=== PATIENT | female | born 2000 | race Caucasian/White ===

== ENCOUNTER 2023-03-02 18:34 | Emergency (ER) | payer BC, SELFPAY ==
[2023-03-02 19:32] VITALS: BP 125/85; PULSE 77; RESP 18; TEMP 36.3; O2SAT 99
--- NOTE | 2023-03-02 20:47 | ED.GENADULT ---
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 She just had placed 2 days ago and is having significant pain at the site on her soft/hard palate. She has had no fevers no chills no neurologic symptoms no symptoms of infection. No drainage no discharge no lymphadenopathy no bleeding. She states that the pain is not adequately treated with ibuprofen and she has been unable to get hold of her oral surgeon. Related Data Allergies Allergy/AdvReac Type Severity Reaction Status Date / Time No Known Drug Allergies Allergy Verified 03/02/23 19:32 Review of Systems Status of ROS: Reports: 6 or more systems reviewed and unremarkable except as noted in History and below Exam Narrative: Exam Narrative: EXAM GENERAL: Patient appears comfortable and well. EYES: No scleral icterus. ENT: Tympanic membranes and oropharynx normal. THYROID: no thyroid nodules or thyromegaly. LYMPH: No supraclavicular or cervical lymphadenopathy. SKIN: Visible skin seen during exam normal or with benign process only. EXT: No dependent lower extremity pedal edema. HEART: Regular rate and rhythm with no murmurs, rubs, or gallops. LUNGS: Clear to auscultation bilaterally with no crackles or wheezes. ABD: Soft, non tender, non distended. PSYCH: Good eye contact, speech is not pressured. Oral exam shows palate taxation economist placed no signs of infection. No significant swelling or induration. Const: Vital Signs, click to edit/add: Vital Signs - 24 hr 03/02/23 19:32 Temperature 97.3 F L Pulse Rate [Left P ulse Oximeter] 77 Respiratory Rate 18 Blood Pressure [Ri ght Upper Arm] 125/85 Pulse Oximetry 99 Oxygen Delivery Me thod Room Air Course Course ED Course: Patient seen and examined. Vital Signs Vital signs: Initial Vital Signs Temperature 97.3 F L 03/02/23 19:32 Temperature Source Temporal Artery Scan 03/02/23 19:32 Pulse Rate 77 03/02/23 19:32 Pulse Rhythm Regular 03/02/23 19:32 Respiratory Rate 18 03/02/23 19:32 Blood Pressure 125/85 03/02/23 19:32 Blood Pressure Mean 98 03/02/23 19:32 Blood Pressure Position Sitting 03/02/23 19:32 Pulse Oximetry 99 03/02/23 19:32 Oxygen Delivery Method Room Air 03/02/23 19:32 Vital Signs Temperature 97.3 F L 03/02/23 19:32 Pulse Rate 77 03/02/23 19:32 Respiratory Rate 18 03/02/23 19:32 Blood Pressure 125/85 03/02/23 19:32 Pulse Oximetry 99 03/02/23 19:32 Oxygen Delivery Method Room Air 03/02/23 19:32 Temperature 97.3 F L 03/02/23 19:32 Pulse Rate 77 03/02/23 19:32 Respiratory Rate 18 03/02/23 19:32 Blood Pressure 125/85 03/02/23 19:32 Pulse Oximetry 99 03/02/23 19:32 Oxygen Delivery Method Room Air 03/02/23 19:32 Medical Decision Making MDM Narrative Medical decision making narrative: Patient is a 22-year-old woman who presents after having a oral appliance placed by his oral surgeon/school admissions representative. He is having discomfort and needs to continue to adjust the device. I do not see any signs of infection. This time will treated with [place] the short term with outpatient follow-up. I did give her my contact information will follow-up with her in the office on a p.r.n. basis Differential Diagnosis Differential Diagnosis: Dental infection cavities sinusitis cellulitis Discharge Plan Discharge Clinical Impression: Acute oral pain Patient Disposition: Home, Self-Care Condition: Stable Additional Instructions: Ibuprofen Ice [place] as directed Follow-up with your surgeon Follow-up with Dr. Rouse on a p.r.n. basis Activity Level: No Restrictions Discharge Diet: Regular Stand Alone Forms: Physician Practice [employer] Info Instructions
== END 2023-03-02 21:00 | disposition home or self-care (01) ==
LOC: ED 20:55
PROVIDERS: Emergency Provider Internal Medicine
DX: K08.89 Other specified disorders of teeth and supporting structures (principal); T85.698A Other mechanical complication of other specified internal prosthetic devices, implants and grafts, initial encounter
CPT/HCPCS: 99283

== ENCOUNTER 2023-03-04 18:07 | Emergency (ER) | payer BC, SELFPAY ==
[2023-03-04 18:26] VITALS: BP 121/80; PULSE 86; RESP 16; TEMP 36.4; O2SAT 98
--- NOTE | 2023-03-04 20:06 | ED_ITS ---
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 She has been having pain ever since. She was seen here on Sunday and given Burton because ibuprofen was not helping. She is back today because she is concerned that it might be getting infected. She is also almost out of Vicodin. She says there is a spot near 1 of the brackets that looked red with a little white edge. She has not contacted her oral surgery clinic. Related Data Allergies Allergy/AdvReac Type Severity Reaction Status Date / Time No Known Drug Allergies Allergy Verified 03/02/23 19:32 PFSH PFS Social History Smoking Status: Never smoker Do you use any of these nicotine containing products: None Second hand tobacco smoke exposure: No How often do you have a drink containing alcohol: never How often do you have six or more drinks on one occasion: Never AUDIT-C Alcohol total score: 0 Non-prescribed substance use: denies use service: No Exam Narrative: Exam Narrative: Vital signs reviewed, unremarkable. Afebrile. ENT: Oral hardware looks intact. I do not see any erythema or purulence, no swelling, really looks entirely normal to me. Neck: No adenopathy. Const: Vital Signs, click to edit/add: Vital Signs - 24 hr 03/04/23 18:26 Temperature 97.5 F L Pulse Rate [Left P ulse Oximeter] 86 Respiratory Rate 16 Blood Pressure [Ri ght Upper Arm] 121/80 Pulse Oximetry 98 Oxygen Delivery Me thod Room Air Documenting provider has reviewed patient's vital signs: yes Course Course ED Course: Discussed with her that from my standpoint I do not see anything that looks significantly infected, but I am happy to put her on an antibiotic for today and she can review with her oral surgeon to see if they would like her to continue it or discontinue tomorrow. She requested additional Vicodin. I have given her 4 tablets, discussed that this should be the last narcotic that she requires for this problem, would stick with ibuprofen going forward. Call her clinic tomorrow to discuss further management. Vital Signs Vital signs: Initial Vital Signs Temperature 97.5 F L 03/04/23 18:26 Temperature Source Temporal Artery Scan 03/04/23 18:26 Pulse Rate 86 03/04/23 18:26 Pulse Rhythm Regular 03/04/23 18:26 Respiratory Rate 16 03/04/23 18:26 Blood Pressure 121/80 03/04/23 18:26 Blood Pressure Mean 93 03/04/23 18:26 Blood Pressure Position Sitting 03/04/23 18:26 Pulse Oximetry 98 03/04/23 18:26 Oxygen Delivery Method Room Air 03/04/23 18:26 Vital Signs Temperature 97.5 F L 03/04/23 18:26 Pulse Rate 86 03/04/23 18:26 Respiratory Rate 16 03/04/23 18:26 Blood Pressure 121/80 03/04/23 18:26 Pulse Oximetry 98 03/04/23 18:26 Oxygen Delivery Method Room Air 03/04/23 18:26 Temperature 97.5 F L 03/04/23 18:26 Pulse Rate 86 03/04/23 18:26 Respiratory Rate 16 03/04/23 18:26 Blood Pressure 121/80 03/04/23 18:26 Pulse Oximetry 98 03/04/23 18:26 Oxygen Delivery Method Room Air 03/04/23 18:26 Discharge Plan Discharge Clinical Impression: Acute oral pain Patient Disposition: Home, Self-Care Condition: Stable Additional Instructions: Antibiotic as prescribed. Ibuprofen 400 mg 3 times daily. Burton if needed for uncontrolled pain. Call your oral surgery clinic tomorrow morning for further instructions. Follow Up/Referrals: Provider,Not a Local [Primary Care Provider] - Stand Alone Forms: MyHealth Info Instructions
== END 2023-03-04 19:41 | disposition home or self-care (01) ==
LOC: ED 19:22
PROVIDERS: Emergency Provider Emergency Medicine
DX: K08.89 Other specified disorders of teeth and supporting structures (principal)
CPT/HCPCS: 99282; 99283

== ENCOUNTER 2023-09-05 03:34 | Emergency (ER) | payer BC, SELFPAY ==
[2023-09-05 03:37] VITALS: BP 106/76; PULSE 56; RESP 16; TEMP 36.7; O2SAT 99; BMI 21.6
--- OUTSIDE RECORDS SUMMARY | 2023-09-05 03:43 | XMS_ITS | Referral Summary ---
Author Name Unknown Organization [facility] Address [address] [place] [address] Phone Care Team Providers Care Needle Grinder Name Role Phone Ramya Howell M.D. Primary Care Provider [phone]- [phone] Source Comments [facility], [place], [place] is fully implemented on [employer]. [facility] Allergies Active Allergy Reactions Criticality Noted Date Comments Gold Swelling (Throat) High 05/01/2023 Indium (111in) Oxyquinoline Swelling (Not Throat) Low 05/01/2023 Found during allergy test Medications * Be aware that medications may not be up to date as of this document. Always verify current medications with patient. Medication Sig Dispensed Refills Start Date End Date Status Julia 3-0.02 MG Tab TAKE ONE TABLET BY MOUTH DAILY 84 tab 0 06/27/2021 Active FLUoxetine (PROZAC) 20 mg Capsule Take 1 capsule (20 mg) by mouth daily 0 04/13/2023 Active linaCLOtide (Linzess) 290 MCG Capsule Take 1 capsule (290 mcg) by mouth daily Take 30 min before dinner 30 capsule 6 05/04/2023 Active Active Problems Problem Noted Date Diagnosed Date Generalized abdominal pain 04/16/2023 Nausea 04/16/2023 Dyspareunia in female 04/07/2020 Overview: Patient with history of dyspareunia with insertion during two prior attempts at intercourse with her partner prior to first visit At first visit, had area of pain on exam 2-3 cm proximal to introitus Planned for her to continue PFPT, use dilators daily, and RTC for follow up Patient has not had continued PFPT and was unable to do dilator exercises at school as she shares a room Has not attempted intercourse again with her partner although they are both in town for the holidays Patient wondering if she needs surgery or what plan will be for her. Cannot do exercises while in school due to lack of privacy in room Recommend PFPT and daily dilator use beginning over summer Plan for clinic visit prior to starting exercises if there are questions, otherwise RTC 1 mo after starting exercises Discussed that surgery is hopefully avoidable if conservative management shows improvement Healthcare maintenance 04/07/2020 Overview: STI: patient declines, has had two prior attempts but no successful episodes of intercourse Contraception: Daily OCPs (Apri) > transition to Louise for acne Sprain of cruciate ligament of knee 07/01/2014 Chronic osteomyelitis, multiple sites 04/30/2013 Immunizations Name Administration Dates Next Due Influenza Quad 0.5ML (Pres Free) 03/31/2020 Social History Tobacco Use Types Packs/Day Years Used Date Smoking Tobacco: Never Tobacco Cessation:Counseling Given: Not Answered Alcohol Use Standard Drinks/Week Comments Never 0 (1 standard drink = 0.6 oz pur e alcohol) Community Connections Answer Date Recor ded Caregiver PCP help Not on file 11/07/2018 Child PCP help Not on file 11/07/2018 Potential social isolation Not assesed 11/07 Appointment help Not on file 11/07/2018 Benefits help needed: Not on file 11/07/2018 Education concerns Not assesed 11/07/2018 Alcohol / Marijuana Use Answer Date Rec orded Alcohol/Marijuana- Caregiver: Not on file Alcohol last 12 mos: Not on file 08/01/2020 Marijuana- Patient Use: No 08/02/19 21 Tobacco Use Answer Date Recorded Tobacco: Caregiver Use No 3 Tobacco- Patient Use: No 04/16/2023 Depression risk Answer Date Recorded Caregiver Depression: Not on file 12/30/2019 Caregiver suicidal thoughts: Not on file Last PHQ-2 Not on file 12/30/2019 Last PHQ-9 Not on file 12/30/2019 Last EPDS Not on file 12/30/2019 Last EPDS self harm item: Not on file 2019 Transportation Answer Date Recorded Transportation Not on file 01/21/2023 [id number] 01/21/2023 Substance Use Answer Date Recorded Substances- Caregiver Use Not on file 2022 Substances- Patient Use: No 023 Sex and Gender Information Value Date Recorded Sex Assigned at Not on file Gender Identity Not on file Sexual Orientation Not on file Last Filed Vital Signs Vital Sign Reading Time Taken Comments Blood Pressure 96/69 05/01/2023 2:45 PM MST Pulse 60 05/01/2023 2:45 PM MST Temperature 36.1 ??C (97 ??F) 05/01/2023 2:45 PM MST Respiratory Rate 15 05/01/2023 2:45 PM MST Oxygen Saturation 98% 05/01/2023 2:45 PM MST Inhaled Oxygen Concentration - - Weight 61.3 kg (135 lb 2.3 oz) 05/01/2023 12:11 PM MST Height 166.7 cm (5' 5.63) 05/01/2023 12:11 PM [facility] Body Mass Index 22.06 05/01/2023 12:11 PM [facility] Plan of Treatment Not on file Advance Directives For more information, please contact: [phone] Documents on File Type Date Recorded Patient Reclamation Engineer Expl anation Advance Directive 05/01/2023 11:57 AM [facility] Care Teams Needle Grinder Relationship Specialty Start Date End Date Ramya Howell M.D. [address] [facility] [place] [address] PCP - General General Pediatrics 04/24/12
--- OUTSIDE RECORDS SUMMARY | 2023-09-05 03:43 | XMS_ITS | Encounter Summary ---
Author Name Unknown Organization [facility] Address [address] [place] [address] Phone Care Team Providers Care Tomahawk Weapon System Operator Name Role Phone Ramya Howell M.D. Primary Care Provider [phone]- [phone] Encounter Details Date Type Department Care Team (Late st Contact Info) Description 05/30/2012 Outside Lab Health Information Management [address] [place] [address] Social History Tobacco Use Types Packs/Day Years Used Date Smoking Tobacco: Never Assessed Sex and Gender Information Value Date Recorded Sex Assigned at Not on file Gender Identity Not on file Sexual Orientation Not on file documented as of this encounter Procedure Notes * YASMIN - 05/30/2012 5:47 PM MSTAssociated Order(s): OUTSIDE LAB SCANNED DOCUMENT documented in this encounter Plan of Treatment Not on file documented as of this encounter Procedures Procedure Name Priority Date/Time Associated Diagnosis Comments OUTSIDE LAB SCANNED DOCUMENT 05/30/2012 5:47 PM MST documented in this encounter Results * OUTSIDE LAB SCANNED DOCUMENT (05/30/2012 5:47 PM MST) Narrative Procedure Note YASMIN - 05/30/2012 5:47 PM MST [facility] OUTSIDE LABS documented in this encounter Visit Diagnoses Not on filedocumented in this encounter Care Teams Tomahawk Weapon System Operator Relationship Specialty Start Date End Date Ramya Howell M.D. [address] [facility] [place], [place] [id number] PCP - General General Pediatrics 04/24/12 documented as of this encounter
--- OUTSIDE RECORDS SUMMARY | 2023-09-05 03:43 | XMS_ITS | Clinical Summary ---
Author Name Unknown Organization [facility] Address [address] [address] Care Team Providers Care Office Workforce Planner Name Role Phone Katlyn Diaz MD Primary Care Provider [phone]- [phone] Willow Paul MD Unavailable [phone] Allergies No known active allergies Medications Medication Sig Dispensed Refills Start Date End Date Status drospirenone-et h estradiol (ISAAC) 3-0.02 mg per tablet Take 1 tablet by mouth daily for Contraception. 84 tablet 1 05/18/2023 Active FLUoxetine (PROZAC) 20 mg capsule Take 1 capsule by mouth daily for Anxiety with Depression, Obsessive-Compulsi ve Disorder. 90 capsule 06/08/2023 09/06/19 24 Active FLUoxetine (PROZAC) 10 mg capsule Take 1 capsule by mouth daily for 14 days, THEN 2 capsules daily for 16 days. for Obsessive-Compulsi ve Disorder. Take in addition to 20mg capsule.. 46 capsule 07/13/2023 08/10/19 24 Discontinued methylphenidate HCl (RITALIN) 5 mg tablet Take 1 tablet by mouth daily for Attention-Deficit Hyperactivity Disorder. 30 tablet 08/01/2023 08/31/19 24 methylphenidate HCl (RITALIN LA) 20 mg 24 hr capsule Take 1 capsule by mouth every morning for Attention-Deficit Hyperactivity Disorder. 30 capsule 08/01/2023 08/31/19 24 Active Problems Problem Noted Date Diagnosed Date Obsessive-compulsive disorder 06/15/2023 Last Assessment & Plan: Haydee has a history of obsessions and compulsions significantly impacting their life, at intake reported 2 hours spent on obsessions and 3 hours spent on compulsions per day. This has improved with therapy but is still distressing. YBOCS 12/25/22. Examples include skin picking, body checking for perceived uneven body shape, specific gait on specific saulo. If she resists, the resistance does not last long and she feels itchy and restless and is unable to think about other tasks. We cross-titrated from Celexa to Prozac as she did not tolerate Celexa at higher doses due to emotional numbing. She is tolerating Prozac 20mg without the emotional numbing and without physical side effects. We increased to 40mg but pt did not tolerate due to sedation. Will decrease back to Prozac 20mg where she had good effects without SE. May need to try an alternative SSRI if unable to fully target OCD symptoms with this low dose. Will have tried increasing at a slower rate, to Prozac 30mg and then 40mg, but Haydee has been unable to tolerate the 30mg as she is falling asleep in class. We discussed that OCD symptoms will likely not be treated appropriately with a lower dose of Prozac and discussed Luvox vs Clomiprimine. Haydee would like to trial 20mg again and increase frequency of therapy for a month to see how her symptoms evolve. If they continue, we will likely switch to Luvox. Plan: - Decrease Prozac from 30mg to 20mg - Continue Trazodone prn - Ok to take Melatonin Attention deficit hyperactivity disorder (ADHD) 10/11/2022 Last Assessment & Plan: Diagnosed in high school, has been taking Ritalin since age 17. No issues currently. Takes med holidays on school vacation/summer/ some weekends. Tried to rx Ritalin LA 20mg #90 in the past, but insurance did not cover. Originally placed 3rx panel with next due 10/01, but cancelled this due to switching pharmacies. Now will need next rx by 08/31, let pt and mother know to call/message one week before. Plan: - Ritalin 5mg daily - Ritalin LA 20mg daily ZBIGNIEW (generalized anxiety disorder) 10/11/2022 Last Assessment & Plan: Major depressive disorder 10/11/2022 Last Assessment & Plan: Panic attacks 10/11/2022 Last Assessment & Plan: Irritable bowel syndrome with constipation 12/06 Last Assessment & Plan: Advised her testing is not routinely performed as an evidence-based practice for diagnosis or management of IBS. She can continue to follow-up with her GI providers as needed. Surveillance for control, oral contracepti ves 12/06/2021 Immunizations Name Administration Dates Next Due DTaP 2006, 3,04/16/2002,02/11,2001 HPV, quadrivalent (GARDASIL) 10/07/2014 HPV9 (GARDASIL 9) 04/26/2015,12/21/2014 Hep A, ped/adol, 2 dose 04/26/2015,10/07/2014 Hib-Hep B 10/13/2002,02/11/2002,2001 IPV (Inactivated Poliovirus) 2006, 10/13/2002,02/11/2002,12/07 Influenza, injectable, quadr ivalent, preservative free (6 mo+) 03/31/2020,01/07/2020 MMR 01/27/2003 MMR/VARICELLA 2006 PFIZER, SARS-COV2 (COVID-19) VACCINE 04/18/2021, 09/04/2020,08/14/2020 Pneumococcal conjugate PCV 7 10/13/2002,07/11/19 03 Tdap 12/17/2012 influenza, live, intranasal, quadrivalent (2-49 yr) 02/17/2019 meningococcal B, recombinant 06/23/2019,06/01/19 19 meningococcal MCV4P 06/01/2018,12/17/2012 varicella (VARIVAX) 01/27/2003 Social History Tobacco Use Types Packs/Day Years Used Date Smoking Tobacco: Never Smokeless Tobacco: Never Alcohol Use Standard Drinks/Week Comments Yes 0 (1 standard drink = 0.6 oz pur e alcohol) occassionally PHQ-2 Answer Date Recorded PHQ-2 SCORE 4 08/10/2023 PHQ-9 Answer Date Recorded PHQ-9 Total Score 15 08/10/2023 Sex and Gender Information Value Date Recorded Sex Assigned at Female 05/05/2021 3:11 PM MST Gender Identity Female 05/05/2021 3:11 PM MST Sexual Orientation Not on file Last Filed Vital Signs Vital Sign Reading Time Taken Comments Blood Pressure 90/60 10/16/2022 4:21 PM MDT Pulse 92 10/16/2022 4:21 PM MDT Temperature 36.7 ??C (98 ??F) 10/16/2022 4:21 PM MDT Respiratory Rate 14 10/16/2022 4:21 PM MDT Oxygen Saturation 97% 10/16/2022 4:21 PM MDT Inhaled Oxygen Concentration - - Weight 61.4 kg (135 lb 6.4 oz) 10/16/2022 4:21 P M MDT Height 165.1 cm (5' 5) 10/16/2022 4:21 PM MDT Body Mass Index 22.53 10/16/2022 4:21 PM MDT Plan of Treatment Upcoming Encounters Date Type Department Care Team (Late st Contact Info) Description 10/16/2023 11:00 AM MDT Preventative Visit [facility] Medicine [facility] [address] [place], [place] [id number] Katlyn Diaz MD [address] [place] [address] Health Maintenance Due Date Last Done Comments Cervical Cancer Screening (P ap Smear) 2001 Recommended HIV Screening (A ges 15-65/One-time) 2016 Medical Durable Power of [facility] (MDPOA) 10/11/2019 Recommended Hepatitis C Anti body Screening 10/11/2019 STI Screen (Chlamydia/GC) 12/06/2022 12/06/2021, Tdap/Td Vaccine (2 - Td or Tdap) 12/17/2022 12/18/19 13 SARS-COV2 (COVID-19) Vaccine ( season) 2023 04/23/2022, 05/04/2021, 04/18/2021, Additional history exists Hepatitis B Vaccine Adult Completed 2002, 02/11/2002, 2001 HPV Vaccine Adult Completed 04/26/2015, , 10/07/2014 Procedures Procedure Name Priority Date/Time Associated Diagnosis Comments CHLAMYDIA/GC PANEL Routine 12/06/2021 10 :06 AM MDT Screening for STD (sexually transmitted disease) from Last 3 Months or Most Recently Relevant to Health Maintenance Results * Chlamydia/GC Gen Probe (12/06/2021 10:06 AM MDT) Chlamydia trachomatis Amplification Not Detected Not detected 12/06/2021 7:59 PM MDT [place] Neisseria gonorrhoeae Amplification Not Detected Not detected 12/06/2021 7:59 PM MDT [place] Comment: Interpretation: Not detected (C. Trachomatis or N. gonorrhoeae) = Negative, organisms not detected Detected (C. Trachomatis or N. gonorrhoeae) = Positive, organisms detected Methodology: This assay utilizes target capture, guitar maker-mediated amplification, and dual kinetic assay. ?? A positive result should be coupled with clinical indicators for diagnosis. ??A Not detected result for this assay does not exclude C.Trachomatis or N. gonorrhoeae involvement in a disease process. ??This test has been approved by the U.S. Food and Drug Administration for testing the following sample types: endocervical, vaginal, male urethral, male urine, and patient collected vaginal swabs. ??Other sample types are not FDA-approved but were validated by the [facility]. This test is used for clinical purposes. ??It should not be regarded as investigational or for research. This laboratory is certified under the Clinical Laboratory Improvement Amendment of 1988 (CLIA) as qualified to perform high complexity clinical testing. The APTIMA Combo 2 Assay is not intended for the evaluation of suspected sexual abuse or for other medico-legal indications. For those patients for whom a false positive result may have adverse psycho-social impact, the CDC recommends retesting. Urine URINE SPECIMEN / Unknown 12/06/2021 10:06 AM MDT 12/06/2021 10:06 AM MDT Theresa Tucker MD BODY FLUIDS AND STOOLS ORDERABLES [facility], [id number], [facility] [phone] from Last 3 Months or Most Recently Relevant to Health Maintenance Care Teams Office Workforce Planner Relationship Specialty Start Date End Date Katlyn Diaz MD [address] [place] [address] PCP - General Family Medicine 05/04/21 [place] [address] [place] [address] Resident Psychiatry 12/25/22
--- OUTSIDE RECORDS SUMMARY | 2023-09-05 03:43 | XMS_ITS | Clinical Summary ---
Author Name Unknown Organization [facility] Address [address] [place] [address] Phone Care Team Providers Care Forestry Engineer Name Role Phone Ramya Howell M.D. Primary Care Provider +1- [phone] Source Comments [facility], [place], [place] is fully implemented on [employer]. [facility] Allergies Active Allergy Reactions Criticality Noted Date [...] Due Influenza Quad 0.5ML (Pres Free) 03/31/2020 Surgical History Surgery Date Site/Laterality Comments NEGATIVE SURGICAL HISTORY Family History Medical History Relation Comments attention deficit disorder Brother migraine headache Brother gets rare migr aines only negative Father migraine headache Maternal Grandmother irritable bowel syndrome Mother lactose intolerance Mother migraine headache Mother celiac Neg Hx food allergy Neg Hx inflammatory bowel Neg Hx Relation Status Comments Brother Father Maternal Grandmother Mother Social History Tobacco Use Types Packs/Day Years [...] Answer Date Recorded Tobacco: Caregiver Use No Tobacco- Patient Use: No 04/16/2023 Depression risk Answer Date Recorded Caregiver Depression: Not on file 12/30/2019 Caregiver suicidal thoughts: Not on file Last PHQ-2 Not on file 12/30/2019 Last PHQ-9 Not on file 12/30/2019 Last EPDS Not on file 12/30/2019 Last EPDS self harm item: Not on file 2019 Transportation Answer Date Recorded Transportation Not on file 01/21/2023 [id number] 01/21/2023 Substance Use Answer Date Recorded Substances- [...] 166.7 cm (5' 5.63) 05/01/2023 12:11 PM [facility] Body Mass Index 22.06 05/01/2023 12:11 PM MST Plan of Treatment Health Maintenance Due Date Last Done Comments COVID-19 Vaccine (2022-06 4 season) 2023 04/23/2022, 05/04/2021, 04/18/2021, Additional history exists Influenza Vaccine Completed 01/05/2023, , 03/31/2020, Additional history exists Advance Directives For more information, please contact: [phone] Documents on File Type Date Recorded Patient Licensed Embalmer Expl anation Advance Directive 05/01/2023 11:57 AM HIP Care Teams Forestry Engineer Relationship Specialty Start Date End Date Ramya Howell M.D. [address] [facility] [place] [address] PCP - General General Pediatrics 04/24/12
--- OUTSIDE RECORDS SUMMARY | 2023-09-05 03:43 | XMS_ITS | Encounter Summary ---
Author Name Unknown Organization [facility] Address [address] [address] Phone Care Team Providers Care Cloth Winder Name Role Phone Ramya Howell M.D. Primary Care Provider +1- [phone] Reason for Referral * Connect (Routine) - Closed Specialty Diagnoses / Procedures Referred By Belinda orona Referred To Contact Gastroenterology Diagnoses Chronic abdominal pain Family history of irritable bowel syndrome Ramya Howell M.D. [address] [address] [facility] [address], [address] [address] Referral ID Status Reason Start Date Expiration Date Visits Re quested Visits Authorized [id number] Closed 11/05/2020 11/05/2021 6 6 Question Answer Patient Contact [facility] Medical Staff Policy requires PCP agreement for all referrals. Have you consulted with the PCP regarding this referral? I am the PCP Comments This referral is for Nutrition/Growth and Parenting. If you need Weight Managment/Obesity Referral please order [id number]- Outpatient Referral to Lifestyle Medicine Nutrition: Is this referral part of a Multi-Disciplinary Visit (ex. Aerodigestive, Allergy, or Pediatric Oral Feeding Clinic (POFC))? No Is your patient breast feeding? No Is the patient 2 years old or less? No Is the patient less than 12 months old? No Is the patient's BMI or weight for length less than 5%? No Do you have concerns about chewing, choking or swallowing? No Does your patient have any food allergies? No What are your specific concerns about this patient? ABDOMINAL PAIN (GLUTEN FREE/DAIRY FREE DIET - FAMILY HISTORY OF IBS AND H. PYLORI If your patient is older than 8 years old, do you have concern about an eating disorder? No If yes, please contact Tanya Dewitt in the Eating Disorders clinic at [phone]. Does the patient need coordinated appointments (2 or more appointments/departments within 5 days, excluding imaging)? No Encounter Details Date Type Department Care Team (Late st Contact Info) Description 11/05/2020 [place] [address] Ramya Howell M.D. [address], [facility] 310 [facility] [place] [address] Chronic abdominal pain (Primary Dx); Family history of irritable bowel syndrome Social History Tobacco Use Types Packs/Day Years Used Date Smoking Tobacco: Never Alcohol Use Standard Drinks/Week Comments Not Asked 0 (1 standard drink = 0.6 oz [...] Answer Date Recorded Tobacco: Caregiver Use No 0 Tobacco- Patient Use: No 01/08/2020 Depression risk Answer Date Recorded Caregiver Depression: Not on file 12/30/2019 Caregiver suicidal thoughts: Not on file Last PHQ-2 Not on file 12/30/2019 Last PHQ-9 Not on file 12/30/2019 Last EPDS Not on file 12/30/2019 Last EPDS self harm item: Not on file 2019 Sex and Gender Information Value Date Recorded Sex Assigned at Not on file Gender Identity Not on file Sexual Orientation Not on file documented as of this encounter Plan of Treatment Scheduled Referrals Name Type Priority Associated Diagnoses Orde r Schedule Referral to Nutrition Referral Routine Chronic abdominal pain Family history of irritable bowel syndrome Ordered: 11/05/2020 documented as of this encounter Visit Diagnoses Diagnosis Start Date Status Chronic abdominal pain- Primary Abdominal pain, unspecified site 11/05/2020 Active Family history of irritable bowel syndrome Family history of other digestive disorders 11/05/2020 Active documented in this encounter Care Teams Cloth Winder Relationship Specialty Start Date End Date Ramya Howell M.D. [address] [facility] [place], [place] [id number] PCP - General General Pediatrics 04/24/12 documented as of this encounter
--- NOTE | 2023-09-05 03:49 | ED_ITS ---
HPI - General Adult General Time Seen by Provider: 03:49 Date Seen: 09/05/23 Chief complaint: Extremity Pain/Injury, Upper Stated complaint: L-Pinky infected Time Seen by Provider: 09/05/23 03:36 Source: patient and RN notes reviewed Mode of arrival: ambulatory Limitations: no limitations History of Present Illness HPI narrative: This 22-year-old female was awoken with left pinky pain. She pulled a hangnail off her finger a couple of days ago. Her finger started to become more red swollen and painful today. Awoke her tonight. She has had no fevers. She is u naware of any history of any MRSA. She states she is otherwise healthy, not aware of any chronic medical conditions. Related Data Home Medications Medication Instructions Recorded Confirmed citalopram 20 mg tablet 20 mg PO DAILY 09/05/23 09/05/23 drospirenone 3 mg-ethinyl 1 tab PO DAILY 09/05/23 09/05/23 estradiol 0.02 mg tablet (Vestura (28)) fluoxetine 10 mg capsule mg 09/05/23 methylphenidate HCl 20 mg biphasic 20 mg PO QAM 09/05/23 09/05/23 50-50 capsule,extended release Allergies Allergy/AdvReac Type Severity Reaction Status Date / Time Penicillins Allergy Rash Verified 09/05/23 03:45 Review of Systems Narrative: As per HPI. PFSH PFSH Social History Smoking Status: Never smoker Do you use any of these nicotine containing products: None Second hand tobacco smoke exposure: No How often do you have a drink containing alcohol: never How often do you have six or more drinks on one occasion: Never AUDIT-C Alcohol total score: 0 Non-prescribed substance use: denies use service: No Exam Const: Vital Signs, click to edit/add: Vital Signs - 24 hr 09/05/23 03:37 Temperature 98.0 F Pulse Rate [Pulse Oximeter] 56 L Respiratory Rate 16 Blood Pressure [Ri ght Upper Arm] 106/76 Pulse Oximetry 99 Oxygen Delivery Me thod Room Air This 22-year-old female is alert, interactive, no apparent distress. She is ambulatory into the ED of her own accord. Her left 5th finger has erythema distally surrounding the nail along the nail fold circumferentially, goes into the pad of the finger. There is mild swelling, a definite erythema and warmth. There is no fluctuance. You can see the small defect where she tore off the hangnail along the medial nail fold. There is no fluid collection, nothing drainable, no paronychia. Documenting provider has reviewed patient's vital signs: yes Course Course ED Course: We discussed antibiotics for this, she would prefer them from [facility]. She has ibuprofen at home, her friend with her has Tylenol. They decline any thing as far as ibuprofen or Tylenol for pain management at this time. Vital Signs Vital signs: Initial Vital Signs Temperature 98.0 F 09/05/23 03:37 Temperature Source Temporal Artery Scan 09/05/23 03:37 Pulse Rate 56 L 09/05/23 03:37 Pulse Rhythm Regular 09/05/23 03:37 Respiratory Rate 16 09/05/23 03:37 Blood Pressure 106/76 09/05/23 03:37 Blood Pressure Mean 86 09/05/23 03:37 Blood Pressure Position Sitting 09/05/23 03:37 Pulse Oximetry 99 09/05/23 03:37 Oxygen Delivery Method Room Air 09/05/23 03:37 Vital Signs Temperature 98.0 F 09/05/23 03:37 Pulse Rate 56 L 09/05/23 03:37 Respiratory Rate 16 09/05/23 03:37 Blood Pressure 106/76 09/05/23 03:37 Pulse Oximetry 99 09/05/23 03:37 Oxygen Delivery Method Room Air 09/05/23 03:37 Temperature 98.0 F 09/05/23 03:37 Pulse Rate 56 L 09/05/23 03:37 Respiratory Rate 16 09/05/23 03:37 Blood Pressure 106/76 09/05/23 03:37 Pulse Oximetry 99 09/05/23 03:37 Oxygen Delivery Method Room Air 09/05/23 03:37 Discharge Plan Discharge Clinical Impression: Finger infection Patient Disposition: Home, Self-Care Condition: Stable Instructions: Cellulitis (ED) Additional Instructions: Take Keflex 500 mg 3 times a day until gone. Tylenol 1000 mg up to 3 times a day as needed baseline for pain management. Can supplement with ibuprofen per bottle directions as needed. If her finger is not improving over the next week, if it is worsening at any point with increasing swelling/pain, development of fever, do need to be re-evaluated. Prescriptions: No Action citalopram 20 mg tablet 20 mg PO DAILY fluoxetine 10 mg capsule Patient Comments: PLEASE SEE ATTACHED FOR DETAILED DIRECTIONS methylphenidate HCl 20 mg capsule,ER biphasic 50-50 20 mg PO QAM drospirenone-ethinyl estradiol [Vestura (28)] 3-0.02 mg tablet 1 tab PO DAILY Follow Up/Referrals: Provider,Not a Local [Primary Care Provider] - Stand Alone Forms: [employer] Info Instructions
--- OUTSIDE RECORDS SUMMARY | 2023-09-05 04:05 | XMS_ITS | Encounter Summary ---
Author Name Unknown Organization [facility] Address [address] [address] Phone Care Team Providers Care Branch General Manager Name Role Phone Ramya Howell M.D. Primary Care Provider +1- [phone] Reason for Referral * Connect (Routine) - Closed Specialty Diagnoses / Procedures Referred By Belinda orona Referred To Contact Gastroenterology Diagnoses Chronic abdominal pain Family history of irritable bowel syndrome Ramya Howell M.D. [address] [address] [facility] [address], [address] [address] Referral ID Status Reason Start Date Expiration Date Visits Re quested Visits Authorized [id number] Closed 11/05/2020 11/05/2021 6 6 Question Answer Patient Contact [facility] Medical Staff Policy requires PCP agreement for all referrals. Have you consulted with the PCP regarding this referral? I am the PCP Comments This referral is for Nutrition/Growth and Parenting. If you need Weight Managment/Obesity Referral please order [id number]- Outpatient Referral to Lifestyle Medicine Nutrition: Is [...] Dewitt in the Eating Disorders clinic at [phone]. Does the patient need coordinated appointments (2 or more appointments/departments within 5 days, excluding imaging)? No Encounter Details Date Type Department Care Team (Late st Contact Info) Description 11/05/2020 [place] [address] Ramya Howell M.D. [address], [facility] [address] [facility] [place] [address] Chronic abdominal pain (Primary Dx); [...] Active documented in this encounter Care Teams Branch General Manager Relationship Specialty Start Date End Date Ramya Howell M.D. [address] [facility] [place], [place] [phone] PCP - General General Pediatrics 04/24/12 documented as of this encounter
--- OUTSIDE RECORDS SUMMARY | 2023-09-05 04:05 | XMS_ITS | Encounter Summary ---
Author Name Unknown Organization [facility] Address [address] [place] [address] Phone Care Team Providers Care Publications Manager Name Role Phone Ramya Howell M.D. Primary Care Provider +1- [phone] Encounter Details Date Type Department Care Team (Late st Contact Info) Description 05/30/2012 Outside Lab Health Information Management [address] [place] [address] Social History Tobacco Use Types [...] on filedocumented in this encounter Care Teams Publications Manager Relationship Specialty Start Date End Date Ramya Howell M.D. [address] [facility] [place], [place] [phone] PCP - General General Pediatrics 04/24/12 documented as of this encounter
--- OUTSIDE RECORDS SUMMARY | 2023-09-05 04:05 | XMS_ITS | Clinical Summary ---
Author Name Unknown Organization [email or web address] Address [address] [address] Care Team Providers Care Railroad Operator Name Role Phone Katlyn Diaz MD Primary Care Provider +1- [phone] Willow Paul MD Unavailable [phone] Allergies No known active allergies Medications Medication [...] Description 10/16/2023 11:00 AM MDT Preventative Visit [facility] [address] [place], [place] [id number] Katlyn Diaz MD [address] [place] [address] Health Maintenance Due Date Last Done Comments Cervical Cancer Screening (P ap Smear) 2001 Recommended HIV Screening (A ges 15-65/One-time) 2016 Medical Durable Power of tab ticketbroker [facility] regionPT [place] [facility] [place] (MDPOA) 10/11/2019 Recommended Hepatitis C Anti body [...] Detected Not detected 12/06/2021 7:59 PM MDT [place] Neisseria gonorrhoeae Amplification Not Detected Not detected 12/06/2021 7:59 PM MDT [place] Comment: Interpretation: Not detected (C. Trachomatis or N. gonorrhoeae) = Negative, organisms not detected Detected (C. Trachomatis or N. gonorrhoeae) = Positive, organisms detected Methodology: This assay utilizes target capture, director regulatory compliance-mediated amplification, and dual kinetic assay. ?? A [...] not FDA-approved but were validated by the [facility] Molecular Diagnostics Laboratory. This test is used [...] Tucker MD BODY FLUIDS AND STOOLS ORDERABLES [facility], [place] [address] [place] [address], [facility] [phone] from Last 3 Months or Most Recently Relevant to Health Maintenance Care Teams Railroad Operator Relationship Specialty Start Date End Date Katlyn Diaz MD [address] [place] [address] PCP - General Family Medicine 05/04/21 [place] [address] [place] [address] Resident Psychiatry 12/25/22
--- OUTSIDE RECORDS SUMMARY | 2023-09-05 04:05 | XMS_ITS | Clinical Summary ---
Author Name Unknown Organization [facility] Address [address] [place] [address] Phone Care Team Providers Care Director Of Business Applications Name Role Phone Ramya Howell M.D. Primary Care Provider +1- [phone] Source Comments [facility], [place], [place] is fully implemented on [employer]. [facility] Allergies Active Allergy Reactions Criticality Noted [...] Date Recorded Transportation Not on file 01/21/2023 [id number] 01/21/2023 Substance Use Answer Date Recorded Substances- [...] 166.7 cm (5' 5.63) 05/01/2023 12:11 PM [facility] Body Mass Index 22.06 05/01/2023 12:11 PM MST Plan of Treatment Health Maintenance Due Date Last Done Comments COVID-19 Vaccine (2022-06 4 season) 2023 04/23/2022, 05/04/2021, 04/18/2021, Additional history exists Influenza Vaccine Completed 01/05/2023, , 03/31/2020, Additional history exists Advance Directives For more information, please contact: [phone] Documents on File Type Date Recorded Patient Head Of Product Expl anation Advance Directive 05/01/2023 11:57 AM HIP Care Teams Director Of Business Applications Relationship Specialty Start Date End Date Ramya Howell M.D. [address] [facility] [place] [address] PCP - General General Pediatrics 04/24/12
--- OUTSIDE RECORDS SUMMARY | 2023-09-05 04:05 | XMS_ITS | Referral Summary ---
Author Name Unknown Organization [facility] Address [address] [place] [address] Phone Care Team Providers Care Bulb Planter Name Role Phone Ramya Howell M.D. Primary Care Provider +1- [phone] Source Comments [facility] [place] [facility], [place], [place] is fully implemented on [employer]. [facility] Allergies Active Allergy Reactions Criticality Noted Date [...] Date Recorded Transportation Not on file 01/21/2023 [id number] 01/21/2023 Substance Use Answer Date Recorded Substances- [...] 166.7 cm (5' 5.63) 05/01/2023 12:11 PM [facility] Body Mass Index 22.06 05/01/2023 12:11 PM [facility] Plan of Treatment Not on file Advance Directives For more information, please contact: [phone] Documents on File Type Date Recorded Patient Underwriting Analyst Expl anation Advance Directive 05/01/2023 11:57 AM [facility] Care Teams Bulb Planter Relationship Specialty Start Date End Date Ramya Howell M.D. [address] [facility] [place] [address] PCP - General General Pediatrics 04/24/12
== END 2023-09-05 04:12 | disposition home or self-care (01) ==
LOC: ED 04:03
PROVIDERS: Emergency Provider Family Medicine
DX: L03.012 Cellulitis of left finger (principal)
CPT/HCPCS: 99282; 99283